=== PATIENT | female | born 1950 | race Caucasian/White ===

== ENCOUNTER → 2017-09-22 | Outpatient (CLI) | payer BC | LOC: MC.RAD 13:00 | DX: Z12.31 Encounter for screening mammogram for malignant neoplasm of breast (principal) ==

== ENCOUNTER 2018-11-13 14:00 | Outpatient (RCR) | payer BC ==
[2018-11-05 11:33] VITALS: BP 141/56; PULSE 80; TEMP 98.3
[2018-11-09 14:15] VITALS: BP 128/71; PULSE 82; TEMP 97.9
[2018-11-11 09:10] VITALS: BP 125/57; PULSE 81; TEMP 98
[~2018-11-13] VITALS: Ht 152.4 cm; Wt 61.4 kg
[~2018-11-13 14:00] MED LIST: ALVESCO80 MCG/Act IH; CLARITIN 1010 MG/TAB PO; ELESTRIN0.06% TOP; LIPITOR 10MG10 MG PO; MASON NATURAL2000 IU PO; MULTI VITAMINS1 TAB PO; PROAIR RES117 MCG/Ac IH; THE MEDICINE S200 M2 PO
[2018-11-13 14:15] VITALS: BP 113/68; PULSE 62; TEMP 98.2
== END 2018-11-13 16:51 | disposition home or self-care (01) ==
LOC: EUO 14:00
DX: E61.1 Iron deficiency (principal)
CPT/HCPCS: J2916

== ENCOUNTER → 2018-12-07 | Outpatient (CLI) | payer BC, MEDICARE | LOC: MC.RAD 09:00 | DX: Z12.31 Encounter for screening mammogram for malignant neoplasm of breast (principal) ==

== ENCOUNTER → 2019-07-12 | Outpatient (CLI) | payer BC | LOC: COL.RAD 13:15 | DX: Z01.812 Encounter for preprocedural laboratory examination (principal); M50.321 Other cervical disc degeneration at C4-C5 level; M48.02 Spinal stenosis, cervical region | CPT/HCPCS: A9585 ==

== ENCOUNTER → 2020-02-18 | Outpatient (CLI) | payer MEDICARE, BC | LOC: MC.RAD 11:18 | DX: Z12.31 Encounter for screening mammogram for malignant neoplasm of breast (principal) ==

== ENCOUNTER → 2020-03-16 | Outpatient (CLI) | payer MEDICARE, BC | LOC: COL.VAS 13:39 | DX: E55.9 Vitamin D deficiency, unspecified (principal); E03.9 Hypothyroidism, unspecified; G47.00 Insomnia, unspecified; Z79.890 Hormone replacement therapy; M79.89 Other specified soft tissue disorders ==

== ENCOUNTER → 2021-03-27 | Outpatient (CLI) | payer MEDICARE, BC | LOC: MC.RAD 10:14 | DX: Z12.31 Encounter for screening mammogram for malignant neoplasm of breast (principal) ==

== ENCOUNTER → 2022-03-28 | Outpatient (CLI) | payer MEDICARE, BC | LOC: MC.RAD 09:57 | DX: Z12.31 Encounter for screening mammogram for malignant neoplasm of breast (principal) ==

== ENCOUNTER → 2023-07-02 | Outpatient (CLI) | payer MEDICARE, BC | LOC: CANSCHCLI → MC.RAD 10:24 | DX: Z12.31 Encounter for screening mammogram for malignant neoplasm of breast (principal) ==